=== PATIENT | female | born 1995 | race Caucasian/White ===

== ENCOUNTER 2017-12-11 09:32 | Emergency (ER) | payer SELFPAY ==
[~2017-12-11] VITALS: Ht 167.6 cm; Wt 65.0 kg
[~2017-12-11 09:32] MED LIST: PREN0.01 PO
[2017-12-11 09:38] VITALS: BP 114/63; PULSE 68; RESP 14; TEMP 98.4; O2SAT 99
[2017-12-11] MEDS ORDERED: birth control PO (09:58)
[2017-12-11] MEDS ORDERED: IBUP1TAB7 PO (10:06)
--- NOTE | 2017-12-11 10:07 | PD ---
HPI Chief Complaint: Oral / Dental Pain or Problem Time Seen by Provider: 09:50 Travel History International Travel<30 days: No Contact w/Intl Traveler<30days: No Traveled to known affect area: No History of Present Illness HPI 22-year-old female here with TMJ pain. She reports history of prior episodes of TMJ pain. She denies injury or trauma. No fever chills. Symptom severity is mild to moderate. Aggravated by chewing. Slightly relieved with OTC ibuprofen PFSH Past Medical History ADHD: Yes (ADHD) Weight (Kg): 3 Cancer: No Cardiovascular Problems: No Developmental Delay: No Diabetes: Yes Diminished Hearing: No Headaches: Yes (migraines) Psychiatric: Yes Immunizations Current: Yes Migraines: No Seizures: No Thyroid Disease: No Ulcer: No Tetanus Vaccination: > 5 Years Influenza Vaccination: No ?: Not LMP: 11/2017 Past Surgical History Surgical History: No Previous Surgery Other Surgery: Yes (STATES THAT SHE HAS HAD AN UNKNOWN SURGERY.) Social History Alcohol Use: Yes Tobacco Use: Yes (1 ppd) Substance Use: Yes (marijuana) Allergies-Medications (Allergen,Severity, Reaction): Coded Allergies: No Known Allergies (Unverified Adverse Reaction, Unknown, 12/11/17) Reported Meds & Prescriptions Reported Meds & Active Scripts Active Reported [ control] 1 Tab PO DAILY Review of Systems Except as stated in HPI: all other systems reviewed are Neg General / Constitutional: No: Fever Physical Exam Narrative GENERAL: Alert and well-appearing 22-year-old female SKIN: Warm and dry. HEAD: Normocephalic. EYES: No injection or drainage. MOUTH: +TTP bilateral temporomandibular joints. No overlying warmth or erythema. Patient can freely open and close the jaw without crepitus. No evidence of dental infection. NECK: Supple Data Data Last Documented VS Vital Signs Date Time Temp Pulse Resp B/P (MAP) Pulse Ox O2 Delivery O2 Flow Rate FiO2 12/11/17 09:38 98.4 68 14 114/63 (80) 99 MDM Medical Decision Making Medical Screen Exam Complete: Yes Emergency Medical Condition: Yes Differential Diagnosis TMJ pain, dentalgia, dental infection Narrative Course 22-year-old female here with TMJ pain. She was given a shot of Toradol. Instructed to continue with OTC NSAIDs. Diagnosis Primary Impression: Temporomandibular joint (TMJ) pain Qualified Codes: M26.623 - Arthralgia of bilateral temporomandibular joint Referrals: Primary Care Physician Departure Forms: Tests/Procedures, Work Release Enter return to work date: Dec 12, 2017 Additional Instructions: Tylenol or ibuprofen as needed for pain. Avoid excessive chewing Eats soft foods for the next several days Follow-up with her doctor Scripts Ibuprofen (Ibuprofen) 800 Mg Tab 800 MG PO Q6HR Y for PAIN, #40 TAB 0 Refills Prov: Rosi Tomlin 12/11/17 Disposition: 01 DISCHARGE HOME Condition: Stable Rosi Tomlin Dec 11, 2017 10:07
[2017-12-11] MEDS ORDERED: KETOROLAC TROMETHAMINE 60 MG/2 ML (IM) VIAL IM ONE (10:15)
== END 2017-12-11 10:45 | disposition home or self-care (01) ==
LOC: NEPK 09:32
DX: M26.623 Arthralgia of bilateral temporomandibular joint (principal); E11.9 Type 2 diabetes mellitus without complications; F90.9 Attention-deficit hyperactivity disorder, unspecified type; F17.200 Nicotine dependence, unspecified, uncomplicated; F12.90 Cannabis use, unspecified, uncomplicated
CPT/HCPCS: 96372; 99283; J1885

== ENCOUNTER 2018-10-04 11:21 | Inpatient (IN) ==
--- NOTE | 2018-10-04 12:29 | ED ---
History of Present Illness [place] [facility] [place] Care Physician: Nathanael Mckinnon MD Chief Complaint: contractions History of Present Illness: This 23 y/o female EDC 10/12/18, EGA 38 6/7 wks presents with c/o ctxs which started this AM. Decreased FM, No VB, ctxs approx every 7 min, No LOF. She denies probs during the . She has had PNC with [facility]. Weeks Gestation:: 38 Para: 0 : 2 Review of Systems All other systems reviewed negative except as stated [facility] - History History Provided By: Patient - Medical / Surgical Hx Neg / Unobtainable Medical Problems Denied: Yes Surgical History: No Previous Surgery - Social History I have reviewed the patient's Social History: Yes - Tobacco History Smoking Status: Former smoker (Quit 07/2018) - Alcohol History How Often Do You Have a Drink Containing Alcohol: Never - Substance Use History Substance History: No History of Abuse - Travel History History of Recent Travel: No Recent Travel in the [place] Within the Last 8 Weeks: No Recent Travel Out of the Country Within the Last 8 Weeks: No Medications and Allergies Allergies Allergy/AdvReac Type Severity Reaction Status Date / Time No Known Allergies Allergy Verified 10/04/18 11:52 Home Medications Medication Instructions Recorded Confirmed Type Vitamin 1 tab PO DAILY 10/04/18 10/04/18 History Exam Vital signs: Vital Signs 10/04/18 11:54 Temperature 98.4 F Pulse Rate 70 Respiratory Rate 18 Blood Pressure 126/73 Intake & Output 10/03/18 10/04/18 10/04/18 18:59 06:59 18:59 Weight 74.843 kg Narrative: GENERAL: Well-nourished, well-developed patient. SKIN: Warm and dry. HEAD: Normocephalic and atraumatic. EYES: No scleral icterus. No injection or drainage. ENT: No nasal drainage noted. Mucous membranes pink. Airway patent. NECK: Supple, trachea midline. No JVD. CARDIOVASCULAR: Regular rate and rhythm without murmurs, gallops, or rubs. RESPIRATORY: Breath sounds equal bilaterally. No accessory muscle use. ABDOMEN/GI: Abdomen soft, non-tender, bowel sounds present, no rebound, no guarding Gravid to [38] weeks size GENITOURINARY: External Genitalia: intact and normal in appearance BUS glands: [normal] Cervix: [post] Dilatation: [2-3] Effacement: [80] Station: [-2] Presentation: [vtx] Membranes: [intact] Uterine Contractions: [irreg on the monitor] FHT's: Category: [1] Baseline: [120] Reactive: [Yes] Variability: [Mod] Decels: [no] +Accels EXTREMITIES: No cyanosis or edema. BACK: Nontender without obvious deformity. No CVA tenderness. NEUROLOGICAL: Awake and alert. Motor and sensory grossly within normal limits. Five out of 5 muscle strength in all muscle groups. Normal speech. Assessment and Plan - Diagnosis (1) Uterine contractions Status: Acute (2) 38 weeks gestation of Code(s): Z3A.38 - 38 weeks gestation of Status: Acute - Plan Recheck cervix in 1 hr 15:39- Cervix now 4/-2. FHTs cat 1, reactive. Will admit in labor. Discharge Plan - Discharge Disposition Patient Disposition: ED Admit(ED Internal Use Only) - Discharge Condition Condition: Stable - Physicians Team ED Provider: Lucila Robbins Primary Care Provider: Nathanael Mckinnon S - Rxs /Orders / Referrals /Forms Prescriptions: No Action Vitamin 1 tab PO DAILY - Discharge Instructions Print Language: Ukrainian
[2018-10-04] MEDS ORDERED: fentaNYL Citrate Inj 100 MCG/2 ML Ampul ONE (13:40)
[2018-10-04] MEDS ORDERED: fentaNYL Citrate Inj 100 MCG/2 ML Ampul IV.PUSH ONE (14:00)
[2018-10-04] MEDS ORDERED: Oxytocin 30 Units/500ml Premix 30 UNITS/500 ML BAG IV.SIG ONE ×2 (15:41→23:05)
[2018-10-04] MEDS ORDERED: fentaNYL Citrate Inj 100 MCG/2 ML Ampul IV.PUSH PRN (15:41)
[2018-10-04] MEDS ORDERED: Sod Chloride 0.9% Inj 1,000 ML IV.CONT PRN (15:41)
[2018-10-04] MEDS ORDERED: Sodium Chlor 0.9% Inj 500 ML IV.SIG PRN (15:41)
[2018-10-04] MEDS ORDERED: Naloxone Inj 0.4 MG/ML Vial IV.PUSH PRN (15:41)
--- NOTE | 2018-10-04 15:44 | P.HPOB ---
OB - Admit History and Physical Patient Name: Vicky Ruano Date of : [birth year] Patient Status: Emergency Emergency Provider: Lucila Robbins Date: 10/04/18 12:20 Initialization Date: 10/04/18 12:20 History of Present Illness [place] [facility] [place] Care Physician: Nathanael Mckinnon MD Chief Complaint: contractions History of Present Illness: This 23 y/o female EDC 10/12/18, EGA 38 6/7 wks presents with c/o ctxs which started this AM. Decreased FM, No VB, ctxs approx every 7 min, No LOF. She denies probs during the . She has had PNC with [facility]. Weeks Gestation:: 38 Para: 0 : 2 Review of Systems All other systems reviewed negative except as stated in HPI [facility] - History History Provided By: Patient - Medical / Surgical Hx Neg / Unobtainable Medical Problems Denied: Yes Surgical History: No Previous Surgery - Social History I have reviewed the patient's Social History: Yes - Tobacco History Smoking Status: Former smoker (Quit 07/2018) - Alcohol History How Often Do You Have a Drink Containing Alcohol: Never - Substance Use History Substance History: No History of Abuse - Travel History History of Recent Travel: No Recent Travel in the [place] Within the Last 8 Weeks: No Recent Travel Out of the Country Within the Last 8 Weeks: No Medications and Allergies Allergies Allergy/AdvReac Type Severity Reaction Status Date / Time No Known Allergies Allergy Verified 10/04/18 11:52 Home Medications Medication Instructions Recorded Confirmed Type Vitamin 1 tab PO DAILY 10/04/18 10/04/18 History Exam Vital signs: Vital Signs 10/04/18 11:54 Temperature 98.4 F Pulse Rate 70 Respiratory Rate 18 Blood Pressure 126/73 Intake & Output 10/03/18 10/04/18 10/04/18 18:59 06:59 18:59 Weight 74.843 kg Narrative: GENERAL: Well-nourished, well-developed patient. SKIN: Warm and dry. HEAD: Normocephalic and atraumatic. EYES: No scleral icterus. No injection or drainage. ENT: No nasal drainage noted. Mucous membranes pink. Airway patent. NECK: Supple, trachea midline. No JVD. CARDIOVASCULAR: Regular rate and rhythm without murmurs, gallops, or rubs. RESPIRATORY: Breath sounds equal bilaterally. No accessory muscle use. ABDOMEN/GI: Abdomen soft, non-tender, bowel sounds present, no rebound, no guarding Gravid to [38] weeks size GENITOURINARY: External Genitalia: intact and normal in appearance BUS glands: [normal] Cervix: [post] Dilatation: [4] Effacement: [90] Station: [-2] Presentation: [vtx] Membranes: [intact] Uterine Contractions: [irreg on the monitor] FHT's: Category: [1] Baseline: [120] Reactive: [Yes] Variability: [Mod] Decels: [no] +Accels EXTREMITIES: No cyanosis or edema. BACK: Nontender without obvious deformity. No CVA tenderness. NEUROLOGICAL: Awake and alert. Motor and sensory grossly within normal limits. Five out of 5 muscle strength in all muscle groups. Normal speech. Assessment and Plan - Diagnosis (1) Uterine contractions Status: Acute (2) 38 weeks gestation of Code(s): Z3A.38 - 38 weeks gestation of Status: Acute - Plan Admit for labor Discharge Plan - Physicians Team ED Provider: Lucila Robbins Primary Care Provider: Nathanael Mckinnon S - Rxs /Orders / Referrals /Forms Prescriptions: No Action Vitamin 1 tab PO DAILY - Discharge Instructions Print Language: New Zealander
[2018-10-04] MEDS ORDERED: Citric Acid/Sodium Citrate Liq 30 ML UDC PO SCH (15:45)
[2018-10-04 16:10] LABS: Baso % (Auto) 0.1 % (0.0-2.0); Eos % (Auto) 0.3 % (0.0-4.0); Hematocrit 37.8 % (35.0-46.0); Hemoglobin 13.2 gm/dL (11.6-15.3); Lymph # (Auto) 2.9 th/mm3 (1.0-4.8); Lymph % (Auto) 18.6 % (9.0-44.0); Mean Corpuscular HGB Conc 34.8 % (32.0-36.0); Mean Platelet Volume 10.1 fL (7.0-11.0); Mono # (Auto) 0.8 th/mm3 (0.0-0.9); Mono % (Auto) 5.3 % (0.0-8.0); Neut # (Auto) 11.8 th/mm3 (1.8-7.7); Neut % (Auto) 75.7 % (16.0-70.0); Platelet Count 253 th/mm3 (150-450); Red Blood Count 4.11 mil/mm3 (4.00-5.30); Red Cell Distribution Width 13.5 % (11.6-17.2); White Blood Count 15.6 th/mm3 (4.0-11.0)
[2018-10-04] MEDS: fentaNYL Citrate Inj 100 MCG/2 ML Ampul IV.PUSH PRN ×2 (16:30→17:49)
[2018-10-04 17:13] LABS: Bacteria,Urine Occasional /hpf; Bilirubin,Urine Negative (Negative); Calcium Oxalate Crystals,Urine Occasional /hpf; Clarity,Urine Clear (Clear); Color,Urine Yellow (Yellw/Straw); Glucose,Urine (UA) Negative (Negative); Leukocyte Esterase,Urine Negative (Negative); Mucus,Urine Few /lpf (Occasional); Nitrite,Urine Negative (Negative); Specific Gravity,Urine 1.024 (1.002-1.035); Squamous Epithelial Cell,Urine 4 /hpf (0-5)
[2018-10-04] MEDS ORDERED: fentaNYL 2MCG-Bupiv 0.125% Epi 150 ML EPIDURAL ONE (19:10)
[2018-10-04] MEDS ORDERED: fentaNYL Citrate Inj 100 MCG/2 ML Ampul EPIDURAL ONE (19:50)
[2018-10-04] MEDS ORDERED: fentaNYL 2MCG-Bupiv 0.125% Epi 150 ML EPIDURAL PRN (19:50)
--- NOTE | 2018-10-04 19:58 | P.OBLABOR ---
Subjective Interval history: Pt now comfortable with epidural. SVE 7/80/-1. AROM performed with amniohook- clear. FHTs 110s, +accels, mod variability. Objective Vital Signs: Vital Signs - 8 hr 10/04/18 16:23 10/04/18 16:24 10/04/18 19:12 Temperature 97.3 F L Pulse Rate 68 74 Respiratory Rate 20 Blood Pressure 105/87 157/95 H 10/04/18 19:30 10/04/18 19:35 10/04/18 19:45 Temperature Pulse Rate 75 92 H 81 Respiratory Rate 18 Blood Pressure 136/84 138/83 120/90 10/04/18 19:50 Temperature Pulse Rate 82 Respiratory Rate Blood Pressure Objective: Pelvic Exam: Cervix: [-] Dilatation: [-] Effacement: [-] Station: [-] Presentation: [-] Membranes: [intact or ruptured] Uterine Contractions: [-] FHT's: Category: [-] Baseline: [-] Reactive: [-] Variability: [-] Decels: [-] Artificial Rupture of Membrane: Yes Artificial ROM Date: 10/04/18 Assessment and Plan - Diagnosis (1) Uterine contractions Status: Acute (2) 38 weeks gestation of Code(s): Z3A.38 - 38 weeks gestation of Status: Acute
[2018-10-04] MEDS ORDERED: fentaNYL Citrate Inj 250 MCG/5 ML Ampul ONE (22:16)
[2018-10-04] MEDS ORDERED: Morphine Sulfate PF Inj 5 MG/10 ML Ampul ONE (22:16)
--- NOTE | 2018-10-04 22:59 | P.OBLABOR ---
Subjective Interval history: Called to room- unable to determine presentation. SVE 10/100/0, face presentation. FHTs 70-80s. Pt taken to OR for stat c section. Objective Vital Signs: Vital Signs - 8 hr 10/04/18 16:23 10/04/18 16:24 10/04/18 19:12 Temperature 97.3 F L Pulse Rate 68 74 Respiratory Rate 20 Blood Pressure 105/87 157/95 H 10/04/18 19:30 10/04/18 19:35 10/04/18 19:45 Temperature Pulse Rate 75 92 H 81 Respiratory Rate 18 Blood Pressure 136/84 138/83 120/90 10/04/18 19:50 10/04/18 20:00 10/04/18 20:10 Temperature Pulse Rate 82 75 Respiratory Rate 18 Blood Pressure 132/80 10/04/18 20:25 10/04/18 20:40 10/04/18 20:45 Temperature Pulse Rate 83 83 74 Respiratory Rate Blood Pressure 126/88 116/69 152/69 H 10/04/18 21:01 10/04/18 21:15 10/04/18 21:30 Temperature Pulse Rate 79 81 66 Respiratory Rate 18 Blood Pressure 127/79 127/84 119/64 10/04/18 22:00 Temperature Pulse Rate 71 Respiratory Rate Blood Pressure 115/58 L Objective: Pelvic Exam: Cervix: [-] Dilatation: [-] Effacement: [-] Station: [-] Presentation: [-] Membranes: [intact or ruptured] Uterine Contractions: [-] FHT's: Category: [-] Baseline: [-] Reactive: [-] Variability: [-] Decels: [-] Assessment and Plan - Diagnosis (1) Uterine contractions Status: Acute (2) 38 weeks gestation of Code(s): Z3A.38 - 38 weeks gestation of Status: Acute (3) Face presentation of fetus Code(s): O32.3XX0 - Maternal care for face, brow and chin presentation, not applicable or unspecified Status: Acute (4) Non-reassuring heart tones complicating , antepartum Code(s): O36.8390 - Maternal care for abnormalities of the heart rate or rhythm, unspecified trimester, not applicable or unspecified Status: Acute - Plan LTCS (3) Face presentation of fetus Qualifiers: Fetus number: single or unspecified fetus Qualified Code(s): O32.3XX0 - Maternal care for face, brow and chin presentation, not applicable or unspecified
--- NOTE | 2018-10-04 23:03 | P.OBDELI ---
Procedure Note Performed by: Lucila Robbins DO Procedure: Primary Low Transverse Section Indication for Delivery: Nonreassuring heart tracing, malposition ( Face Presentation) Informed Consent Obtained: For procedure Confirmed Correct: Patient, Procedure, Site, Time-out taken Anesthesia: Other (General) Medication Prior to Procedure: As documented in eMAR Monitoring During Procedure: Blood pressure monitoring, hall monitor Urinary Catheter: Inserted using sterile technique Sterile Preparation: With 10% povidone iodine (Betadine) Position: Supine - Operative Features Skin Incision: Pfannenstiel Uterine Incision: Low transverse w/knife / blunt ext Membranes Ruptured: Previously Presentation: Face presentation Status of Infant: Viable Placenta Delivered: Intact Estimated blood loss (mL): 300 Procedure Tolerated: Well Maternal Condition: Stable Baby Complications: Other (facial swelling) Baby Condition: Stable - Infant: Male Infant Male A Delivery Date: 10/04/18 Delivery Time: 22:24 Weight: 2.45 kg score (1 min): 8 score (5 min): 9
[2018-10-04] MEDS ORDERED: ceFAZolin 2 GM Premix Inj 2 GM/50 ML PIGGYBACK IV.SIG ONE (23:05)
[2018-10-05] MEDS ORDERED: Naloxone Inj 0.4 MG/ML Vial IV.PUSH PRN (00:45)
[2018-10-05] MEDS ORDERED: Oxytocin 30 Units/500ml Premix 30 UNITS/500 ML BAG IV.SIG PRN (04:05)
[2018-10-05 04:51] VITALS: RESP 18
[2018-10-05 05:21] LABS: Baso # (Auto) 0.1 th/mm3 (0.0-0.2); Baso % (Auto) 0.3 % (0.0-2.0); Hematocrit 38.6 % (35.0-46.0); Lymph # (Auto) 1.7 th/mm3 (1.0-4.8); Lymph % (Auto) 6.9 % (9.0-44.0); Mean Corpuscular HGB Conc 33.7 % (32.0-36.0); Mean Corpuscular Hemoglobin 31.4 pg (27.0-34.0); Mean Corpuscular Volume 93.2 fL (80.0-100.0); Mean Platelet Volume 9.7 fL (7.0-11.0); Mono # (Auto) 1.1 th/mm3 (0.0-0.9); Mono % (Auto) 4.5 % (0.0-8.0); Neut # (Auto) 21.6 th/mm3 (1.8-7.7); Neut % (Auto) 88.3 % (16.0-70.0); Platelet Count 225 th/mm3 (150-450); Red Blood Count 4.15 mil/mm3 (4.00-5.30); Red Cell Distribution Width 13.5 % (11.6-17.2); White Blood Count 24.4 th/mm3 (4.0-11.0)
--- NOTE | 2018-10-05 09:31 | P.PNOB ---
Subjective Post op day: 1 Interval history: Patient seen and examined this morning. AFVSS overnight. Postoperative day #1. Pain well controlled. Incision not draining. Decreased lochia. Denies dysuria. No breast tenderness. She is feeding the baby via formula. Appetite good. No nausea or vomiting. No flatus. No bowel movement. Ambulating well. Denies calf pain, shortness of breath, or cough. She otherwise has no other complaints or concerns this morning. Objective Vital Signs/I&O: Vital Signs 10/04/18 11:54 10/04/18 16:23 10/04/18 16:24 Temperature 98.4 F 97.3 F L Pulse Rate 70 68 Respiratory Rate 18 20 Blood Pressure 126/73 105/87 10/04/18 19:12 10/04/18 19:30 10/04/18 19:35 Temperature Pulse Rate 74 75 92 H Respiratory Rate 18 Blood Pressure 157/95 H 136/84 138/83 10/04/18 19:45 10/04/18 19:50 10/04/18 20:00 Temperature Pulse Rate 81 82 Respiratory Rate 18 Blood Pressure 120/90 10/04/18 20:10 10/04/18 20:25 10/04/18 20:40 Temperature Pulse Rate 75 83 83 Respiratory Rate Blood Pressure 132/80 126/88 116/69 10/04/18 20:45 10/04/18 21:01 10/04/18 21:15 Temperature Pulse Rate 74 79 81 Respiratory Rate Blood Pressure 152/69 H 127/79 127/84 10/04/18 21:30 10/04/18 22:00 10/04/18 22:15 Temperature Pulse Rate 66 71 Respiratory Rate 18 18 Blood Pressure 119/64 115/58 L 10/04/18 23:10 10/04/18 23:39 10/04/18 23:40 Temperature 97.8 F Pulse Rate 102 H 87 78 Respiratory Rate 18 18 18 Blood Pressure 129/75 146/79 H 139/73 10/05/18 00:09 10/05/18 00:15 10/05/18 00:45 Temperature 97.8 F Pulse Rate 95 H 63 79 Respiratory Rate 18 18 20 Blood Pressure 120/71 131/63 121/81 10/05/18 04:50 10/05/18 08:00 Temperature 98.2 F 98.4 F Pulse Rate 82 93 H Respiratory Rate 18 18 Blood Pressure 119/72 117/77 Intake & Output 10/04/18 10/05/18 10/05/18 18:59 06:59 18:59 Intake Total 500 / 500 Balance 500 / 500 Weight 74.843 kg Intake: IV 500 / 500 LR 1000 mL Inj 500 ML @ 125 mls 500 / 500 /hr IV.SIG .Q4H [facility] Rx#: [id number] Result Diagrams: 10/05/18 05:10 Objective Remarks: GENERAL: Well-nourished, well-developed patient. CARDIOVASCULAR: Regular rate and rhythm without murmurs, gallops, or rubs. RESPIRATORY: Breath sounds equal bilaterally. No accessory muscle use. ABDOMEN/GI: Abdomen soft, non-tender, bowel sounds present. Incision: Clean, dry and intact. Fundus: Firm, non-tender at umbilicus. GENITOURINARY: Light to moderate bleeding. EXTREMITIES: No cyanosis or edema, non-tender, without signs of DVT. Medications and IVs: Active Medications Citric Acid/Sodium Citrate (Sodium Citrate/Citric Acid Liq) 30 ml PO [employer] [facility] Stop: 10/08/18 15:44 Diphenhydramine HCl (Benadryl) 50 mg PO Q6H PRN PRN Reason: MILD TO MODERATE ITCHING Stop: 10/06/18 00:44 Diphenhydramine HCl (Benadryl Inj) 25 mg IV.PUSH Q6H PRN PRN Reason: MILD TO MODERATE ITCHING Stop: 10/06/18 00:44 Diphtheria/Pertussis/Tetanus Vacc (Boostrix Vaccine Inj) 0.5 ml IM .ONCE ONE Stop: 10/05/18 16:01 Ephedrine Sulfate (Ephedrine/Ns Syringe) 10 mg IV.PUSH UNSCH PRN PRN Reason: SEE LABEL COMMENTS Stop: 10/05/18 19:50 Fentanyl Citrate (Fentanyl Inj) 50 mcg IV.PUSH Q1H PRN PRN Reason: Pain Scale 3 - 5 Fentanyl Citrate (Fentanyl Inj) 100 mcg IV.PUSH Q1H PRN PRN Reason: PAIN SCALE 6 TO 10 Last Admin: 10/04/18 17:49 Dose: 100 mcg Lactated Ringer's (Lr 1000 Ml Inj) 500 mls @ 0 mls/hr IV.SIG .Q0M [facility] Lactated Ringer's (Lr 1000 Ml Inj) 500 mls @ 125 mls/hr IV.SIG .Q4H [facility] Last Admin: 10/05/18 01:36 Dose: Not Given Lactated Ringer's (Lr 1000 Ml Inj) 1,000 mls @ 3,000 mls/hr IV.SIG UNSCH PRN PRN Reason: compromise or epidural Lactated Ringer's (Lr 1000 Ml Inj) 1,000 mls @ 125 mls/hr IV.CONT .Q8H [facility] Last Admin: 10/05/18 08:11 Dose: Not Given Sodium Chloride (Ns Inj) 500 mls @ 1,000 mls/hr IV.SIG UNSCH PRN PRN Reason: SEE LABEL COMMENTS Sodium Chloride (Ns Inj) 1,000 mls @ 100 mls/hr IV.CONT .Q10H PRN PRN Reason: SEE LABEL COMMENTS Fentanyl/Bupivacaine/Sodium Chlor (Fentanyl 2 Mcg-Bupiv 0.125% Epi) 150 mls @ 12 mls/hr EPIDURAL PRN PRN PRN Reason: for Labor Pain Last Admin: 10/05/18 01:37 Dose: 12 mls/hr Lactated Ringer's (Lr 1000 Ml Inj) 1,000 mls @ 100 mls/hr IV.CONT .Q10H [facility] Stop: 10/06/18 00:04 Oxytocin (Pitocin 30 Units/Ns 500 Ml Premix) 30 units in 500 mls @ 100 mls/hr IV.SIG UNSCH PRN PRN Reason: Heavy bleeding Ibuprofen (Motrin) 800 mg PO Q8H PRN PRN Reason: cramping Ketorolac Tromethamine (Toradol Inj) 30 mg IM Q6H PRN PRN Reason: SEE LABEL COMMENTS Last Admin: 10/05/18 00:00 Dose: 30 mg Lidocaine HCl (Xylocaine 1% Inj) 0.1 ml I-DERMAL PRN PRN PRN Reason: For IV start Stop: 10/07/18 15:40 Lidocaine HCl (Xylocaine 1% Inj) 10 ml INFILTRATN PRN PRN PRN Reason: For episiotomy repair Stop: 10/06/18 15:40 Measles/Mumps/Rubella Vaccine Live (M-M-R Ii Vaccine Inj) 0.5 ml SQ .ONCE ONE Stop: 10/05/18 16:01 Mineral Oil (Muri-Lube Oil) 10 ml TOPICAL PRN PRN PRN Reason: PRN perineal massage Miscellaneous Information ([facility] Nursing Information) 1 each OTHER UNSCH PRN PRN Reason: SEE LABEL COMMENTS Stop: 10/06/18 21:59 Naloxone HCl (Narcan Inj) 0.1 mg IV.PUSH Q2M PRN PRN Reason: for opiate reversal Naloxone HCl (Narcan Inj) 0.4 mg IV.PUSH UNSCH PRN PRN Reason: SEE LABEL COMMENTS Stop: 10/06/18 00:44 Ondansetron HCl (Zofran Inj) 4 mg IV.PUSH Q6H PRN PRN Reason: NAUSEA OR VOMITING Oxycodone/Acetaminophen (Percocet 5/325 Mg) 1 tab PO Q4H PRN PRN Reason: PAIN SCALE 3 TO 5 Oxycodone/Acetaminophen (Percocet 5/325 Mg) 2 tab PO Q4H PRN PRN Reason: PAIN SCALE 6 TO 10 Sodium Chloride (Ns Flush) 2 ml IV.FLUSH BID ROHAN Sodium Chloride (Ns Flush) 2 ml IV.FLUSH PRN PRN PRN Reason: FLUSH AFTER USING IV ACCESS Assessment and Plan - Diagnosis (1) delivery delivered Code(s): O82 - Encounter for delivery without indication Status: Acute - Plan 23 year-old POD#1 s/p stat due to distress. 1. Postoperative Care - AFVSS - Incision c/d/i - Postop H&H reviewed and within normal limits - Percocet and Motrin prn pain - Encouraged OOB, as tolerated - Advised pelvic rest x 6 weeks -Formula feeding - F/u in 1 week with OB provider for incision check dw Dr. Robbins - Attending Attestation The exam, history, and the medical decision-making described in the above note were completed with the assistance of the resident physician. I reviewed and agree with the findings presented. I attest that I had a [id number] encounter with the patient on the same day, and personally performed and documented my assessment and findings in the medical record. Pt seen and examined. Discussed emergency c section. She understands. She is doing well.
[2018-10-05] MEDS ORDERED: Influenza (Quadrivalent) Vaccine 0.5 ML Syringe IM ONE (12:30)
[2018-10-05] MEDS ORDERED: Diphtheria/Tetanus/Pertussis Vaccine Inj 0.5 ML Syringe IM ONE (16:00)
[2018-10-05] MEDS ORDERED: Measles/Mumps/Rubella Vaccine Inj 0.5 ML Vial SQ ONE (16:00)
--- NOTE | 2018-10-06 09:34 | P.PNOB ---
Subjective Post op day: 2 Interval history: Patient is a 23-year-old delivered at 38 weeks and 6 days. Patient is day 2 after primary c/s. Patient's pain is well-controlled. Patient reports minimal bleeding. Patient reports eating and drinking without any nausea or vomiting. Patient has passed gas but has not had a bowel movement. Patient denies chest pain and shortness of breath. Patient has been ambulating; she denies lower extremity pain. Patient reports desire for contraception, which she will discuss with her PCP at her first follow-up visit. Patient has decided to breast-feed. Objective Vital Signs/I&O: Vital Signs 10/05/18 11:00 10/05/18 16:00 10/05/18 20:00 Temperature 98.0 F 98.2 F 98.5 F Pulse Rate 85 99 H 68 Respiratory Rate 18 18 18 Blood Pressure 114/71 116/69 123/89 10/06/18 08:00 Temperature 98.1 F Pulse Rate 103 H Respiratory Rate 18 Blood Pressure 107/74 Result Diagrams: 10/05/18 05:10 Objective Remarks: GENERAL: Well-nourished, well-developed patient. CARDIOVASCULAR: Regular rate and rhythm without murmurs, gallops, or rubs. RESPIRATORY: Breath sounds equal bilaterally. No accessory muscle use. ABDOMEN/GI: Abdomen soft, non-tender, bowel sounds present. Incision: Clean, dry and intact. Fundus: Firm, non-tender at umbilicus. GENITOURINARY: Light to moderate bleeding. EXTREMITIES: No cyanosis or edema, non-tender, without signs of DVT. 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 [facility] [place] Stop: 10/08/18 15:44 Diphenhydramine HCl (Benadryl) 50 mg PO Q6H PRN PRN Reason: ITCHING Fentanyl Citrate (Fentanyl Inj) 50 mcg IV.PUSH Q1H PRN PRN Reason: Pain Scale 3 - 5 Fentanyl Citrate (Fentanyl Inj) 100 mcg IV.PUSH Q1H PRN PRN Reason: PAIN SCALE 6 TO 10 Last Admin: 10/04/18 17:49 Dose: 100 mcg Lactated Ringer's (Lr 1000 Ml Inj) 500 mls @ 0 mls/hr IV.SIG .Q0M [facility] [place] Lactated Ringer's (Lr 1000 Ml Inj) 500 mls @ 125 mls/hr IV.SIG .Q4H [facility] [place] Last Admin: 10/05/18 01:36 Dose: Not Given Lactated Ringer's (Lr 1000 Ml Inj) 1,000 mls @ 3,000 mls/hr IV.SIG UNSCH PRN PRN Reason: compromise or epidural Lactated Ringer's (Lr 1000 Ml Inj) 1,000 mls @ 125 mls/hr IV.CONT .Q8H [facility] [place] Last Admin: 10/06/18 08:36 Dose: Not Given Sodium Chloride (Ns Inj) 500 mls @ 1,000 mls/hr IV.SIG UNSCH PRN PRN Reason: SEE LABEL COMMENTS Sodium Chloride (Ns Inj) 1,000 mls @ 100 mls/hr IV.CONT .Q10H PRN PRN Reason: SEE LABEL COMMENTS Fentanyl/Bupivacaine/Sodium Chlor (Fentanyl 2 Mcg-Bupiv 0.125% Epi) 150 mls @ 12 mls/hr EPIDURAL PRN PRN PRN Reason: for Labor Pain Last Admin: 10/05/18 01:37 Dose: 12 mls/hr Oxytocin (Pitocin 30 Units/Ns 500 Ml Premix) 30 units in 500 mls @ 100 mls/hr IV.SIG UNSCH PRN PRN Reason: Heavy bleeding Ibuprofen (Motrin) 800 mg PO Q8H PRN PRN Reason: cramping Last Admin: 10/06/18 05:47 Dose: 800 mg Ketorolac Tromethamine (Toradol Inj) 30 mg IM Q6H PRN PRN Reason: SEE LABEL COMMENTS Last Admin: 10/05/18 00:00 Dose: 30 mg Lidocaine HCl (Xylocaine 1% Inj) 0.1 ml I-DERMAL PRN PRN PRN Reason: For IV start Stop: 10/07/18 15:40 Lidocaine HCl (Xylocaine 1% Inj) 10 ml INFILTRATN PRN PRN PRN Reason: For episiotomy repair Stop: 10/06/18 15:40 Mineral Oil (Muri-Lube Oil) 10 ml TOPICAL PRN PRN PRN Reason: PRN perineal massage Miscellaneous Information (Misc Nursing Information) 1 each OTHER UNSCH PRN PRN Reason: SEE LABEL COMMENTS Stop: 10/06/18 21:59 Naloxone HCl (Narcan Inj) 0.1 mg IV.PUSH Q2M PRN PRN Reason: for opiate reversal Ondansetron HCl (Zofran Inj) 4 mg IV.PUSH Q6H PRN PRN Reason: NAUSEA OR VOMITING Oxycodone/Acetaminophen (Percocet 5/325 Mg) 1 tab PO Q4H PRN PRN Reason: PAIN SCALE 3 TO 5 Last Admin: 10/06/18 01:55 Dose: 1 tab Oxycodone/Acetaminophen (Percocet 5/325 Mg) 2 tab PO Q4H PRN PRN Reason: PAIN SCALE 6 TO 10 Last Admin: 10/06/18 05:46 Dose: 2 tab Sodium Chloride (Ns Flush) 2 ml IV.FLUSH BID ROHAN Last Admin: 10/06/18 08:36 Dose: Not Given Sodium Chloride (Ns Flush) 2 ml IV.FLUSH PRN PRN PRN Reason: FLUSH AFTER USING IV ACCESS Assessment and Plan - Diagnosis (1) delivery delivered Code(s): O82 - Encounter for delivery without indication Status: Acute (2) Contraceptive education Code(s): Z30.09 - Encounter for other general counseling and advice on contraception Status: Acute - Plan Patient is a 23-year-old delivered at 38 weeks and 6 days. Patient is day 2 after primary c/s. Continue routine care. Motrin and Percocet when necessary for pain. Benadryl PRN itching. Encourage OOB. Incision check 1 week after discharge. Pelvic rest for 6 weeks will need follow-up appointment at that time. Contraception: To discuss further with OB provider at 6 week follow-up. * Contraceptive options discussed at length. Patient leans toward IUD placement but will do some of her own research before discussing with her OB provider. Anticipate discharge tomorrow. [facility] OB hospitalist
[2018-10-06] MEDS ORDERED: Senna/Docusate Sodium 8.6/50 MG Tablet PO PRN (12:00)
[2018-10-06] MEDS ORDERED: Bisacodyl 10 MG Supp RECTAL ONE (16:45)
--- NOTE | 2018-10-07 07:35 | P.PNOB ---
Subjective Post op day: 3 Interval history: Patient is a 23-year-old delivered at 38 weeks and 6 days. Patient is day 3 after primary c/s. Patient's pain is well-controlled. Minimal bleeding. Eating and drinking without any nausea or vomiting. + Bowel movement. Patient denies chest pain and shortness of breath. Patient has been ambulating; she denies lower extremity pain. Patient reports desire for contraception, which she will discuss with her PCP at her first follow-up visit. Patient has decided to breast-feed. She is very tired this morning. Objective Vital Signs/I&O: Vital Signs 10/06/18 08:00 10/06/18 20:00 Temperature 98.1 F 98.0 F Pulse Rate 103 H 85 Respiratory Rate 18 18 Blood Pressure 107/74 138/90 Result Diagrams: 10/05/18 05:10 Objective Remarks: GENERAL: Well-nourished, well-developed patient. CARDIOVASCULAR: Regular rate and rhythm without murmurs, gallops, or rubs. RESPIRATORY: Breath sounds equal bilaterally. No accessory muscle use. ABDOMEN/GI: Abdomen soft, non-tender, bowel sounds present. Incision: Clean, dry and intact. Fundus: Firm, non-tender at umbilicus. GENITOURINARY: Light to moderate bleeding. EXTREMITIES: No cyanosis or edema, non-tender, without signs of DVT. 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 [facility] Stop: 10/08/18 15:44 Diphenhydramine HCl (Benadryl) 50 mg PO Q6H PRN PRN Reason: ITCHING Fentanyl Citrate (Fentanyl Inj) 50 mcg IV.PUSH Q1H PRN PRN Reason: Pain Scale 3 - 5 Fentanyl Citrate (Fentanyl Inj) 100 mcg IV.PUSH Q1H PRN PRN Reason: PAIN SCALE 6 TO 10 Last Admin: 10/04/18 17:49 Dose: 100 mcg Lactated Ringer's (Lr 1000 Ml Inj) 500 mls @ 0 mls/hr IV.SIG .Q0M [facility] Lactated Ringer's (Lr 1000 Ml Inj) 500 mls @ 125 mls/hr IV.SIG .Q4H [facility] Last Admin: 10/05/18 01:36 Dose: Not Given Lactated Ringer's (Lr 1000 Ml Inj) 1,000 mls @ 3,000 mls/hr IV.SIG UNSCH PRN PRN Reason: compromise or epidural Lactated Ringer's (Lr 1000 Ml Inj) 1,000 mls @ 125 mls/hr IV.CONT .Q8H [facility]OHAN Last Admin: 10/07/18 01:44 Dose: Not Given Sodium Chloride (Ns Inj) 500 mls @ 1,000 mls/hr IV.SIG UNSCH PRN PRN Reason: SEE LABEL COMMENTS Sodium Chloride (Ns Inj) 1,000 mls @ 100 mls/hr IV.CONT .Q10H PRN PRN Reason: SEE LABEL COMMENTS Fentanyl/Bupivacaine/Sodium Chlor (Fentanyl 2 Mcg-Bupiv 0.125% Epi) 150 mls @ 12 mls/hr EPIDURAL PRN PRN PRN Reason: for Labor Pain Last Admin: 10/05/18 01:37 Dose: 12 mls/hr Oxytocin (Pitocin 30 Units/Ns 500 Ml Premix) 30 units in 500 mls @ 100 mls/hr IV.SIG UNSCH PRN PRN Reason: Heavy bleeding Ibuprofen (Motrin) 800 mg PO Q8H PRN PRN Reason: cramping Last Admin: 10/07/18 01:45 Dose: 800 mg Ketorolac Tromethamine (Toradol Inj) 30 mg IM Q6H PRN PRN Reason: SEE LABEL COMMENTS Last Admin: 10/05/18 00:00 Dose: 30 mg Lidocaine HCl (Xylocaine 1% Inj) 0.1 ml I-DERMAL PRN PRN PRN Reason: For IV start Stop: 10/07/18 15:40 Mineral Oil (Muri-Lube Oil) 10 ml TOPICAL PRN PRN PRN Reason: PRN perineal massage Naloxone HCl (Narcan Inj) 0.1 mg IV.PUSH Q2M PRN PRN Reason: for opiate reversal Ondansetron HCl (Zofran Inj) 4 mg IV.PUSH Q6H PRN PRN Reason: NAUSEA OR VOMITING Oxycodone/Acetaminophen (Percocet 5/325 Mg) 1 tab PO Q4H PRN PRN Reason: PAIN SCALE 3 TO 5 Last Admin: 10/06/18 18:36 Dose: 1 tab Oxycodone/Acetaminophen (Percocet 5/325 Mg) 2 tab PO Q4H PRN PRN Reason: PAIN SCALE 6 TO 10 Last Admin: 10/07/18 06:30 Dose: 2 tab Polyethylene Glycol (Miralax) 17 gm PO DAILY [facility] Senna/Docusate Sodium (Char-Colace) 1 tab PO DAILY PRN PRN Reason: CONSTIPATION Last Admin: 10/06/18 13:14 Dose: 1 tab Sodium Chloride (Ns Flush) 2 ml IV.FLUSH BID ROHAN Last Admin: 10/06/18 22:40 Dose: Not Given Sodium Chloride (Ns Flush) 2 ml IV.FLUSH PRN PRN PRN Reason: FLUSH AFTER USING IV ACCESS Assessment and Plan - Diagnosis (1) delivery delivered Code(s): O82 - Encounter for delivery without indication Status: Acute - Plan Patient is a 23-year-old delivered at 38 weeks and 6 days. Patient is day 3 after primary c/s. Continue routine care. Motrin and Percocet when necessary for pain. Benadryl PRN itching. Encourage OOB. Incision check 1 week after discharge. Pelvic rest for 6 weeks will need follow-up appointment at that time. Contraception: To discuss further with OB provider at 6 week follow-up. Anticipate discharge today [facility] OB hospitalist, Dr. Robbins - Attending Attestation The exam, history, and the medical decision-making described in the above note were completed with the assistance of the resident physician. I reviewed and agree with the findings presented. I attest that I had a [id number] encounter with the patient on the same day, and personally performed and documented my assessment and findings in the medical record. Pt seen and examined. Agree with resident.
[2018-10-07] MEDS: Polyethylene Glycol 3350 17 GM Packet PO SCH ×2 (07:41→10:17)
[2018-10-07 11:11] VITALS: BP 124/76; PULSE 76; TEMP 98.6
== END 2018-10-07 12:25 | disposition home or self-care (01) | DRG 788 ==
LOC: HOBED 11:21 → H2E 15:46 → H1EA 10-05 00:35
PROVIDERS: ADMIT Obstetrics & Gynecology; ATTEND Obstetrics & Gynecology
CPT/HCPCS: 59025; 81001; 85025; 86900; 86901; 87641; 88307; 90471; 90658; 90686; 90715; 90774; 90784; 96374; 99285; C8952; G0008; J1885; J2274; J2590; J3010; J7120; Q0163; Q2038